=== PATIENT | female | born 1995 | race African-American/Black ===

== ENCOUNTER 2025-02-13 21:26 | Emergency (ER) | payer OTHER ==
[~2025-02-13] VITALS: Ht 172.7 cm; Wt 118.0 kg
[2025-02-14 03:48] VITALS: BP 143/69; TEMP 98.6; O2SAT 97
== END 2025-02-14 03:49 | disposition home or self-care (01) ==
LOC: M ED 21:26
DX: B34.8 Other viral infections of unspecified site (principal); Z88.0 Allergy status to penicillin